=== PATIENT | male | born 1945 | race Caucasian/White ===

== ENCOUNTER 2018-01-12 05:45 | Day surgery (SDC) | payer MEDICARE, OTHER ==
[2018-01-02 08:40] VITALS: BMI 20.5
[2018-01-12] MEDS ORDERED: Midazolam 2 MG/2 ML VIAL ONE (07:54)
[2018-01-12] MEDS ORDERED: Propofol 10 mg/ml Inj (20 ML) ONE (07:54)
[2018-01-12] MEDS: Lidocaine 2% Jelly (Uro-Jet) ONE ×2 (08:07→08:25)
[2018-01-12] MEDS: cefTRIAXone 1 gm 1 GM/100 ML BAG IVPB ONE ×2 (08:08→08:20)
[2018-01-12] MEDS ORDERED: Gentamicin 160 MG in Sodium Chloride 0.9% 100 ML IVPB ONE ×2 (08:13→08:21)
[2018-01-12] MEDS ORDERED: Etomidate 20 mg/10ml Inj IV ONE (08:14)
[2018-01-12] MEDS: Gentamicin 160 MG in Sodium Chloride 0.9% 100 ML IVPB ONE ×2 (08:29→08:30)
[2018-01-12] MEDS ORDERED: HYDROmorphone 0.5 mg/0.5 ml ISec IVP PRN (09:13)
--- NOTE | 2018-01-12 09:16 | PCM.SURG1 ---
Surgeon's Initial Post Op Note - Surgeon's Notes Surgeon: pattie escamilla Educational Audiologist: none Type of Anesthesia: IV Sedation Pre-Operative Diagnosis: elevated psa Operative Findings: same, enlarged prostate Post-Operative Diagnosis: same Operation Performed: PUS, Bx Specimen/Specimens Removed: prostate bx's Estimated Blood Loss: EBL {In ML}: 0 Blood Products Given: N/A Drains Used: No Drains Post-Op Condition: Good Date of Surgery/Procedure: 01/12/18 Time of Surgery/Procedure: 09:15
[2018-01-12 10:24] VITALS: O2SAT 100
[2018-01-12 11:26] VITALS: BP 94/55; PULSE 67; RESP 15; TEMP 97.5
--- NOTE | 2018-01-13 19:28 | OP ---
Copied To: Tabitha Rodriguez MD Attending MD: Tabitha Rodriguez MD UROLOGY OPERATIVE REPORT PROCEDURE DATE: 01/12/2018 PREOPERATIVE DIAGNOSIS: Elevated prostate-specific antigen. POSTOPERATIVE DIAGNOSIS: Elevated prostate-specific antigen. PROCEDURES: Transrectal prostate ultrasound. Transrectal prostate biopsy. OPERATING SURGEON: Tabitha Rodriguez MD DESCRIPTION OF PROCEDURE: As follows: The patient received perioperative antibiotics. The patient was placed in lateral decubitus position. The rectum was prepped topically with Betadine solution and lidocaine jelly. Sedation was provided by the anesthesiologist. Rectal examination was performed. There was moderate prostatic enlargement. There was no induration or nodularity appreciated. Prostate was mobile without fixation. prostate ultrasound probe inserted per rectum. Prostate was scanned in sagittal and transverse planes. Prostate was measured in three dimensions. Prostate volume was calculated. FINDINGS: There was noted to be moderate prostatic enlargement. The seminal vesicles were normal. There was moderate hyperechogenicity of the prostate. There were no dominant hypoechoic nodules. There was no significant calcifications noted. The junction of the peripheral and transition zone was fairly well defined. See attached ultrasound photos and measurements regarding prostate length with height and volume. The prostate biopsy was then performed. Biopsies obtained from right and left sides of prostate including base, mid and apical sections of the prostate. Biopsies were performed in the transverse mode. Two course were obtained from each were obtained. Biopsies were directed laterally as well as in the parasagittal plane as well as toward any hypoechoic areas. Following prostate biopsy, the ultrasound probe was removed. Rectal examination was performed. There was no bleeding noted. The patient tolerated procedure without complication. Tabitha Rodriguez MD
== END 2018-01-12 11:42 | disposition home or self-care (01) ==
LOC: C.SDS 05:45
PROVIDERS: ATTEND Urology
DX: C61 Malignant neoplasm of prostate (principal); N40.0 Benign prostatic hyperplasia without lower urinary tract symptoms; I25.119 Atherosclerotic heart disease of native coronary artery with unspecified angina pectoris; Z95.1 Presence of aortocoronary bypass graft; E78.5 Hyperlipidemia, unspecified; I25.2 Old myocardial infarction
CPT/HCPCS: 55700; 88305; 88342; J0696; J1580